=== PATIENT | female | born 1935 | race Caucasian/White ===

== ENCOUNTER 2023-09-12 16:09 | Inpatient (IN) | payer MEDICARE, SELFPAY ==
[2023-09-12] VITALS (36 sets, daily range): BP systolic 63–127; BP diastolic 35–88; BMI 23.2
[2023-09-12] MEDS: NSS 184 ML IV (09:24)
[2023-09-12] MEDS: LOW STRENGTH ASPIRIN 324 MG PO (09:26)
--- NOTE | 2023-09-12 10:14 | W.PN.CARDCBS ---
Today's Communication / Plan
-
Review cath films
possible LHC
possible CTS consult
Impression / Plan
-
This is the H&P summary.
Full H&P scanned into chart.
PCP: Ericka Boyce MD
CD[facility]: [facility] prior to admission, [facility]
HPI: This is an 88 y/o female, PMH sig for HLD, HTN, diet controlled DM, remote PUD. States a 6-12 month history of exertional chest heaviness with associated SOB/MATHEW. These symptoms have been progressively worsening and PCP had referred to
Cardiology for intial consult. Symptoms worsened and and presented to [facility]. She was in acute heart failure with pulmonary edema. Was admitted to ICU and diuresed with IV lasix. HS troponin was initially 914 and trended up to 2078. Echo with
preserved LVSF, EF 55%, septal HK, diastolic dysfunction. lab technician 09/11 with critical ostial LAD as culprit for NSTEMI, with collaterals to an occluded RCA. Attempted PCI of LAD was unsuccessful and ultimately aborted.
Transferred today for re-look with possible attempt at LAD PCI vs. CTS consult for MidCAB.
Echo 09/10- Nml LVSF, EF 55%, grade I diastolic dysfunction, mid-distal septal HK, mild
IMPRESSION/PLAN:
NSTEMI
unsuccessful attempted ostial LAD PCI at [facility]
Possible [facility]- angiography re-look with possible attempt for LAD PCI
if not cath/pci candidate- likely consult CTS
aspirin 324mg this AM
echo results noted
new start metoprolol xl 25/d
cardiac rehab
followup w/Dr. Holguin at d/c
Acute Diastolic HFrEF, 55%/Pulmonary edema
diuresed with lasix- she appears euvolemic- will monitor
continue GDMT- metoprolol 25/d, losartan 100/d for now
consider dapagliflozin 10/d.
New onset PAF
brief AF noted on tele while on bedrest- had been on IV heparin
[id number] (age, gender, CAD, HTN, DM)
will need OAC at d/c
HLD- check lipid profile, continue statin therapy
HTN- monitor trends
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
IV fluids pre/post cath, check creat post dye load
Diet controlled DM- check HgbA1C, ISS as needed
PUD- remote, continue PPI especially with addition of OAC/possible DAPT.
Progress Note - Prototype Special Build
Subjective
Date of Service: September 12, 2023
Objective
Vital Signs and I&O:
Vital Signs
Temp Pulse Resp BP Pulse Ox
98.9 F 73 18 118/63 95
09/12/23 08:30 09/12/23 08:30 09/12/23 08:30 09/12/23 08:30 09/12/23 08:30
Vital Signs
Temp Pulse Resp BP Pulse Ox
98.9 F 73 18 118/63 95
09/12/23 08:30 09/12/23 08:30 09/12/23 08:30 09/12/23 08:30 09/12/23 08:30
Intake & Output
09/10/23 09/11/23 09/12/23 09/13/23
06:59 06:59 06:59 06:59
Intake Total 368 / 368
Balance 368 / 368
Physical Exam
Physical Exam
AAOx3, MAEE 5/5
RRR S1 S2 no murmurs
CTA bilat, non labored
soft abd, + bs
bilat extremities w/palpable distal pulses, no edema
--- NOTE | 2023-09-12 11:05 | CONSULT.CT ---
Consultation
-
Date/Time Consultation Requested: 09/12/23
Date/Time Consultation Performed: 09/12/23
Requesting Provider: Dr. Walsh
Performing Provider: Riya Argueta PRIMARY COUNSELOR for Dr. Kowalski
Reason for Consultation: CABG evaluation
Patient History
Physicians
Family Physician: Ericka Boyce
Outpatient Replenishment Analyst: none prior to admission, new to [facility]/Aren Holguin DO
Inpatient Replenishment Analyst: Dr. Walsh
History of Present Illness
88 year old female ([place] reports a 6-12 month history of progressively worsening exertional left sided chest heaviness with associated SOB/MATHEW. Symptoms recently occurred when walking less than 1 full block. Patient was admitted
to [facility] with acute heart failure with pulmonary edema and diuresed with IV Lasix. Ruled in for NSTEMI (HS troponin 914>2078). Patient taken to the phlebotomist lab assistant on 09/11 (radial artery) with reported dual left ostia and critical 99%
ostial LAD as culprit for NSTEMI, with collaterals to an occluded RCA. An attempted PCI of LAD was unsuccessful and ultimately aborted.
Transferred to [facility] 09/12/23 for possible attempt at LAD PCI which proved unsuccessful. CT Surgery consulted for CABG evaluation. Patient does NOT take
Echo 09/10- Nml LVSF, EF 55%, grade I diastolic dysfunction, mid-distal septal HK, mild
Cardiac Cath 09/12/23 (femoral artery): FloWire assessment in the distal circumflex demonstrated flow-limiting disease (IFR 0.88, 0.86, 0.91). Proximal circumflex demonstrating nonflow limiting disease of the ostial circumflex (IFR 1.0). Unsuccessful
attempts to wire severe highly angulated ostial/proximal LAD disease.
Past Medical History
Past Medical History: Other
Hypertension
Hyperlipidemia
Type 2 Diabetes (diet controlled)
Peptic Ulcer disease (remote)
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
Osteoarthritis of B/K knees
Past Surgical History
Past Surgical History: Other
Hysterectomy
Cancerous colon tumor removed
Family History
Mother: at Age (83-emphysema)
Father: N/A (father unknown)
Social History
Alcohol: None
Drug: None
Tobacco: Former Smoker (quit 'many years' ago)
Personal:
Living: Alone (independent with ADLs, does not drive)
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
Allergies
Allergy/AdvReac Type Severity Reaction Status Date / Time
adhesive AdvReac Severe Rash Verified 09/12/23 08:40
metformin AdvReac Severe diarrhea Verified 09/12/23 08:40
Home Medications
Medication Instructions Recorded Confirmed Type
aspirin 81 mg tablet 81 mg PO DAILY 09/12/23 09/12/23 History
famotidine 20 mg tablet 20 mg PO DAILY 09/12/23 09/12/23 History
losartan 100 1 tab PO DAILY 09/12/23 09/12/23 History
mg-hydrochlorothiazide 25 mg tablet
pantoprazole 40 mg tablet,delayed 40 mg PO DAILY 09/12/23 09/12/23 History
release
rosuvastatin 20 mg tablet 20 mg PO HS 09/12/23 09/12/23 History
Review of Systems
-
History Source: Patient
General: Reports No Symptoms
HEENT: Reports No Symptoms
Respiratory: Reports MATHEW
Cardiac: Reports Chest Pain (none since admission to [facility])
Abdomen/GI: Reports No Symptoms
: Reports No Symptoms
Musculoskeletal: Reports No Symptoms
Skin: Reports No Symptoms
Neurological: Reports Syncope (07/2023-did not seek medical attention)
Vascular: Reports No Symptoms
Physical Exam
Vital Signs
Temp 98.9 F 09/12/23 08:30
Temp route: Oral 09/12/23 08:30
Pulse 73 09/12/23 08:30
Resp Rate 18 09/12/23 08:30
Blood pressure 118/63 09/12/23 08:30
Blood pressure extremity used: Right upper arm 09/12/23 08:30
Position: Lying 09/12/23 08:30
SaO2 95 09/12/23 08:30
Oxygen Mode of Delivery Room air 09/12/23 08:30
Can the patient verbally communicate their pain? Yes 09/12/23 10:52
Actual Weight 61.235 kg 09/12/23 08:37
Body Mass Index (BMI) 23.2 09/12/23 08:37
Exam
General: Well Nourished, No Apparent Distress and Comfortable
HEENT: Normocephalic, Anicteric, Moist Mucous Membranes, PERRLA and EOMI
Respiratory: Clear
Cardiac: Irregular Rhythm
GI: Soft, Non Tender, Non Distended and Normal Bowel Sounds
Rectal: Deferred by Provider
Skin: Warm and Dry
Neuro: AO x 3 and Nonfocal/Grossly Intact
Extremities: Pulses (+2/4 B/L DP pulses)
Lymph: No Lymphadenopathy
Psych: Calm
Assessment / Plan
-
88 year old female diagnosed with NSTEMI and found to have multi-vessel coronary disease (Occluded RCA, 99% ostial LAD, flow limiting disease of LCx by IFR). [facility] Transferred to [facility] 09/12
for PCI attempt via femoral approach which was unsuccessful.
- Dr Kowalski to meet with patient to discuss surgical risk/benefit
- pre-op diagnostics: non-contrast CT chest, TTE, carotid ultrasound, B/L LE vein mapping
- plan for robot assist CABG x 3-4 on 09/14
- hold Losartan/HCTZ pre-op starting 09/13
Data Reviewed
-
EKG: Report Reviewed by me and Discussed with Physician
Certified Juvenile Probation Officer: Report Reviewed by me and Discussed with Physician
Echo: Report Reviewed by me and Discussed with Physician
Radiology: Report Reviewed by me and Discussed with Physician
Labs: Labs Reviewed by me and Discussed with Physician
[2023-09-12] MEDS: HEPARIN 25000 UNITS/250 ML IV ×2 (11:31→17:56)
[2023-09-12 11:55] LABS: Hematocrit 35.7 % (37.0-47.0); Hemoglobin 12.9 g/dL (12.0-16.0); Mean Corp Hgb Conc. 36.1 g/dL (33.0-37.0); Mean Corpuscular Hgb 32.4 pg (27.0-31.0); Mean Corpuscular Volume 89.7 fL (81.0-99.0); Mean Platelet Volume 9.9 fL (7.4-10.4); Platelet Count 234 10^3/uL (130-400); Red Blood Cell Count 3.98 10^6/uL (4.20-5.40); Red Cell Dist. Width 12.5 % (11.5-14.5); White Blood Cell Count 12.8 10^3/uL (4.8-10.8)
[2023-09-12] MEDS: NOVOLOG FLEXPEN-LOW RESISTANCE SC (12:05)
[2023-09-12 12:08] LABS: APTT 23.2 Sec (23.4-35.0)
[2023-09-12 12:13] LABS: Glucose - Point of Care 152 mg/dl (70-99)
[2023-09-12 13:44] LABS: ACT-LR - POC 234 Seconds (116-155)
[2023-09-12 13:59] LABS: ACT-LR - POC 242 Seconds (116-155)
--- NOTE | 2023-09-12 14:22 | PTCARENOTE ---
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
--- NOTE | 2023-09-12 14:32 | PTCARENOTE ---
[address] ceja aware. 20 iv lasix orderd and given
[2023-09-12] MEDS: LASIX 20 MG IV (14:38)
--- NOTE | 2023-09-12 14:50 | PTCARENOTE ---
pt states no pain at this time . sats 95-97% on 6l.
[2023-09-12 15:01] LABS: Glucose - Point of Care 167 mg/dl (70-99)
--- NOTE | 2023-09-12 15:05 | PTCARENOTE ---
Assumed care of pt at 1500. Pt AAO x 3, denies CP. ECHO at bedside. Pt remains on NC6L, o2 sats 98%, no SOB. R groin dressing dry and intact. Purewick in place, draining nayla urine. +2 RDP. See flowsheet for further assessment. Will cont to
monitor closely.
--- NOTE | 2023-09-12 15:14 | ITS.CL.ANGIO ---
Quality Assurance Project Manager - Angioplasty
Angioplasty
Procedure Report:
CORONARY ANGIOPLASTY REPORT
Date of Procedure: 09/12/2023
Referring: Jonatan Rodriguez MD
Indication: Unstable angina, non-STEMI. The patient underwent catheterization yesterday demonstrating multivessel CAD. An attempt was made to treat severe ostial/proximal LAD disease but a guide catheter could not engage the left coronary ostium.
The patient was sent here for consideration of a second attempt at PCI-the attempt yesterday was via a radial artery approach and we thought perhaps a femoral artery approach could be used to selectively engage the LAD. If this was not possible
then CABG. Dr. Rodriguez felt the best plan would be a MIDCAB with grafting to the LAD with medical therapy for the residual CAD including a distal circumflex stenosis and a mid RCA HOG COUNTER. When I reviewed the angiogram, I had concerned that there was
significant ostial circumflex disease. After speaking with Dr. Rodriguez, we decided to do FloWire assessment of the ostial circumflex then attempt LAD PCI if the ostial circumflex was not flow-limiting. If flow-limiting disease in the proximal
circumflex was found, then upfront surgery would be the safest option. We are concerned about proceeding with CABG given her age (88) and mild cognitive impairment.
PROCEDURE SUMMARY:
1. FloWire assessment in the distal circumflex (past distal circumflex lesion) demonstrating flow-limiting disease with IFR 0.88, 0.86, 0.91.
2. FloWire assessment in the proximal circumflex demonstrating nonflow limiting disease of the ostial circumflex with IFR 1.0
3. Unsuccessful attempts to wire severe highly angulated ostial/proximal LAD disease
PROCEDURE DETAILS:
I opted to place an 8 Guamanian sheath in the right femoral artery to allow dual treatment of the ostial circumflex and ostial LAD should that become necessary. Our first plan was to evaluate the ostial circumflex with IFR. Multiple guide catheters
were used the first of which was an EBU 3.5 [place]ian guide. We were unable to engage the circumflex. An AL 2 guide was able to engage the circumflex. Prior to engagement, normalization of a [employer] flow wire was performed in the aorta. The guide
was then advanced to the ostium of the circumflex and the [place] flow wire advanced into the distal branch of the circumflex. The guide was withdrawn back into the aorta. iFR measurements were 0.88, 0.86, 0.91. Taken together, this is consistent
with flow-limiting disease. The wire was then carefully pulled back to the proximal circumflex with the guide catheter remaining in the aorta. iFR measurements were 1.0 and 1.0 consistent with nonflow limiting disease at the level of the ostial
circumflex.
At this point we attempted to get a wire through the severe highly angulated ostial/proximal LAD disease. Multiple guide catheters including the AL 2, EBU 3.5, JL 4, and JL 3.5 were not able to select the LAD and we were able to get a whisper wire
into the proximal LAD but not across the lesion. Eventually, we decided to abort further attempts out of concern for dissecting the vessel and causing abrupt closure which would be catastrophic. Patient did not have chest discomfort or ECG changes
at any time during the attempted PCI.
ANTI-COAGULATION THERAPY
1: Heparin 5000 units
Closure Device Used: 8 Guamanian Angio-Seal RFA
Radiation (mGy): 440
DAP (cm2.Gy): 40.6
Fluoroscopy time: 27 minutes
CONCLUSIONS:
1. FloWire assessment demonstrating the ostial/proximal circumflex disease is not flow-limiting although the distal circumflex lesion is flow-limiting
2. Unsuccessful attempt to wire the highly angulated severe ostial/proximal LAD stenosis from a femoral approach
3. Dr. Kowalski will evaluate the patient for possible MIDCAB (versus multivessel CABG). Given her age and comorbidities including mild cognitive impairment, she will be a high risk CABG candidate. Unfortunately, her presentation was very significant
angina including rest pain possibly resulting in mild pulmonary edema
Copy to: Elliott Rodriguez MD, Ericka Boyce MD ([facility]), Jaya Kowalski MD
Christopher Walsh MD, [facility]
[2023-09-12 15:50] LABS: ACT-LR - POC > 397 Seconds (116-155)
--- NOTE | 2023-09-12 15:53 | PTCARENOTE ---
ECHO complete, report given to Sadaf CASINO CHANGE ATTENDANT. Family at bedside. 02 sats 96-97% on NC6L. R groin dressing dry and intact.
--- NOTE | 2023-09-12 16:45 | PTCARENOTE ---
Patient received from [facility] s/p catheterization. Afib via cm, SaO2 @ 98% on 6lnc. R groin procedural site cdi, no ecchymosis or hematoma noted, distal pulse palp, extremity warm and pink. Dr. Walsh notified of rhythm change, to bedside. Patient
voided via Purewick, 200ml nayla urine. Patient updated to plan of care, in agreement. See work list for full assessment and interventions performed.
[2023-09-12] MEDS: NSS 250 IV (17:17)
[2023-09-12 17:22] LABS: Glucose - Point of Care 187 mg/dl (70-99)
[2023-09-12] MEDS: NOVOLOG FLEXPEN-LOW RESISTANCE 1 UNITS SC (17:56)
--- NOTE | 2023-09-12 19:45 | PTCARENOTE ---
ERNESTINA Carlisle notified of troponin result of 30. Repeat troponin in 6 hrs ordered.
--- NOTE | 2023-09-12 20:15 | PTCARENOTE ---
Pt received from ashwini RN. Walking rounds completed. Pt AAOx4. A-fib on monitor. HR 80-90s. BP 107/60. Bilateral radial and DP pulses palpable. No edema. Heart tones audible. Pt on 2 L NC. POX 966%. Purewick in place. Pt voiding nayla urine.
Abdomen soft/nontender. Right groin cath site CDI. No ecchymosis or hematoma at this time. Left PIV x2 CDI. Heparin infusing as ordered. No c/o pain at this time. Call barragan within reach. See worklist for full nursing assessment, VS, and nursing
interventions.
[2023-09-12] MEDS: CRESTOR 20 MG PO (22:03)
[2023-09-12] MEDS: PEPCID 20 MG PO (22:03)
[2023-09-12 22:08] LABS: Glucose - Point of Care 171 mg/dl (70-99)
[2023-09-13] VITALS (93 sets, daily range): BP systolic 58–143; BP diastolic 32–117; BMI 22.7
--- NOTE | 2023-09-13 00:09 | PTCARENOTE ---
Addendum entered by Stacey Lozoya RN 09/13/23 00:14:
Heparin infusing as ordered.
Original Note:
Previous assessment unchanged. Pt remains a-fib on monitor. HR 90s. BP 91/56. Pt maintained on 2 L NC. POX 96%. Pt repositioned in bed. Purewick catheter in place. Right groin procedural site CDI. Right DP pulse palpable. Right LE warm and pink.
Ordered labs drawn and sent. No c/o pain at this time. Call barragan within reach.
[2023-09-13 00:19] LABS: APTT 80.2 Sec (23.4-35.0)
[2023-09-13] MEDS: LEVOPHED 250 IV (04:33)
--- NOTE | 2023-09-13 04:50 | PTCARENOTE ---
Pt re-assessed. Remains a-fib/a-flutter on monitor. HR 90-100s. BP's soft. 80s/50s. CVPA Lydia Carlisle at the bedside. Levo infusion initiated as ordered - See OCT. Pt on RA. POX 94%. Purewick catheter in place. Right groin procedural site CDI.
Right DP pulse palpable. Right LE warm and pink. No c/o pain at this time. Call barragan within reach.
--- NOTE | 2023-09-13 04:56 | PTCARENOTE ---
Pt now SR on monitor. HR 70's.
[2023-09-13 05:40] LABS: Hematocrit 37.1 % (37.0-47.0); Hemoglobin 12.9 g/dL (12.0-16.0); Mean Corp Hgb Conc. 34.8 g/dL (33.0-37.0); Mean Corpuscular Hgb 31.9 pg (27.0-31.0); Mean Corpuscular Volume 91.8 fL (81.0-99.0); Mean Platelet Volume 10.3 fL (7.4-10.4); Platelet Count 282 10^3/uL (130-400); Red Blood Cell Count 4.04 10^6/uL (4.20-5.40); Red Cell Dist. Width 12.8 % (11.5-14.5); White Blood Cell Count 15.3 10^3/uL (4.8-10.8)
[2023-09-13 05:54] LABS: INR 1.16
[2023-09-13 05:56] LABS: APTT 79.4 Sec (23.4-35.0)
--- NOTE | 2023-09-13 06:10 | W.PN.CT ---
Today's Communication / Plan
-
-no complaints, no CP, A&O x3
-in and out of a-fib 70s-low 100s hr throughout the night- currently in nsr
-drips: Heparin @ 700 units/hr (PTT 80.2) and Levo @ 2 for hypotension
-low SBP 80s-90s while in a-fib - asymptomatic, in bed
-diuresed with 20 iv Lasix on 09/12 (uo 525/1025+ in 12/24 hrs)
-R groin and R radial incisions are ok, cdi, no hematoma
-current meds (ASA, Crestor, Toprol 25 qd, Lasix 40 po qd). Held Cozaar for hypotension and preop
- Dr Kowalski will review Cath, Echo and will meet with patient to discuss surgical risk/benefit
- pre-op diagnostics: non-contrast CT chest, TTE, carotid ultrasound, B/L LE vein mapping ordered
- tentative plan for robot assist CABG x 3-4 on 09/14
Assessment / Plan
-
88 year old female diagnosed with NSTEMI and found to have multi-vessel coronary disease (Occluded RCA, 99% ostial LAD, flow limiting disease� of distal LCx with IFR 0.88, non-flow limiting ostial Circ with IFR 1.0). [facility] Transferred to [facility] 09/12 for PCI attempt via femoral approach, which was unsuccessful.
- Echo 09/12/23:
�-LV ejection fraction is approximately 30-35%, by visual assessment. Akinesis of the entire anteroseptal, inferoseptal, apical septal. Apical dyskinesis.
�-Normal right ventricular size and function.
�-Mild mitral stenosis; peak/mean gradients 9/2 mmHg. Mild to moderate mitral regurgitation.
�-Likely moderate aortic stenosis; peak/mean gradient 17/8 mmHg, calculated CARISSA 1.0 cm2. These gradients are lower than expected for this degree of aortic stenosis due to decreased left ventricular systolic function. Mild to moderate aortic
regurgitation.
-Compared to previous echo on 09/10/2021, LV function is now reduced (previously 55%).
-Hypertension
-Hyperlipidemia
-Type 2 Diabetes (diet controlled)
-Peptic Ulcer disease (remote)
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
-Osteoarthritis of B/l knees
�
Discussed patient care with: Nursing and Care Team
Subjective
-
Date of Service: September 13, 2023
Objective Data
-
APTT 80.2 Sec (23.4-35.0) H 09/12/23 23:50
Vital Signs
Vital Signs
Temp Pulse Resp BP Pulse Ox
98 F 104 24 93/51 94
09/13/23 00:01 09/13/23 01:30 09/13/23 01:30 09/13/23 01:00 09/13/23 01:30
CT Intake/Output/Weight
09/12/23 09/12/23 09/13/23
06:59 18:59 06:59
Intake Total 500 / 632 132 / 632
Output Total 500 / 1025 525 / 1025
Balance 0 / -393 -393 / -393
SaO2: 94
Physical Exam
-
General: Awake and AOx3
Cardiovascular: Regular rate & rhythm, Murmur (08/19 syst @ lsb) and No Rub
Respiratory: Rales (at bases. No wheeze)
Incision: Other (Both R radial and R groin incisions are cdi, soft, nontender, no hematoma.)
Extremities: No Edema (2+ DP b/l)
Data Reviewed
-
Lab Results: Results Reviewed
Medications: Active Meds Reviewed
Chest X-Ray: Report Reviewed and Image Reviewed
ECG: Report Reviewed and Image Reviewed
[2023-09-13 06:16] LABS: Blood Urea Nitrogen 37 mg/dl (7-17); Carbon Dioxide 23 mmol/L (22-30); Chloride 102 mmol/L (98-107); Estimated Creatinine Clearance 27 ml/min; Glucose 188 mg/dl (70-99); HDL Cholesterol 56 mg/dl; LDL Cholesterol, Calculated 85 mg/dl; Potassium 3.2 mmol/L (3.5-5.1); Sodium 138 mmol/L (135-145); Total Cholesterol 169 mg/dl (50-199); Triglyceride 141 mg/dl (10-149); Very Low Density Lipoprotein 28 mg/dl (0-30); eGFR 40.05
[2023-09-13] MEDS: KCL 40 MEQ PO (06:43)
--- NOTE | 2023-09-13 07:30 | PTCARENOTE ---
Assumed care of patient from shift superintendent RN. JUAN CARLOSO x 3. SR on monitor. Room air 96%. Lungs decreased and coarse b/l in bases. Levophed and heparin infusing at present. BP 90's-100's/50's. Denies cp or sob. Abdomen soft , with bowel sounds
present. Voiding w/o issue. Pulse palpable, no edema appreciated.
[2023-09-13] MEDS: PROTONIX 40 MG PO (08:25)
[2023-09-13] MEDS: LOW STRENGTH ASPIRIN 81 MG PO (08:25)
--- NOTE | 2023-09-13 08:31 | W.PN.CD ---
Today's Communication / Plan
-
- Cardiac surgery evaluation.
Impression / Plan
-
PCP: Ericka Boyce MD
[facility]
88 y/o female, H sig for HLD, HTN, diet controlled DM, remote PUD. States a 6-12 month history of exertional chest heaviness with associated SOB/MATHEW. These symptoms have been progressively worsening and PCP had referred to Cardiology for intial
consult. Symptoms worsened and and presented to [facility]. She was in acute heart failure with pulmonary edema. Was admitted to ICU and diuresed with IV lasix. HS troponin was initially 914 and trended up to 2077. Echo with preserved LVSF, EF 55%,
septal HK, diastolic dysfunction. entry level lab technician 09/11 with critical ostial LAD as culprit for NSTEMI, with collaterals to an occluded RCA. Attempted PCI of LAD was unsuccessful and ultimately aborted.
Transferred today for re-look with possible attempt at LAD PCI vs. CTS consult for MidCAB.
Echo 09/10- Nml LVSF, EF 55%, grade I diastolic dysfunction, mid-distal septal HK, mild
NSTEMI
unsuccessful attempted ostial LAD PCI at [facility]
Unsuccessful attempt to wire the highly angulated severe ostial/proximal LAD stenosis from a femoral approach
CT surgery is following for possible MIDCAB (versus multivessel CABG).�
Given her age and comorbidities including mild cognitive impairment, she will be a high risk CABG candidate.� Unfortunately, her presentation was very significant angina including rest pain possibly resulting in mild pulmonary edema
On aspirin, crestor, Metoporlol, and heparin.
echo results 09/12/23: LVEF 35%. Moderate MR.
on metoprolol xl 25/d
Acute Diastolic HFrEF, 35%/Pulmonary edema
diuresed with lasix- she appears euvolemic- will monitor
continue GDMT- metoprolol 25/d, losartan 100/d for now
consider dapagliflozin at discharge
New onset PAF
brief AF noted on tele while on bedrest- had been on IV heparin
[id number] (age, gender, CAD, HTN, DM)
will need OAC at d/c
HLD- check lipid profile, continue statin therapy
HTN- monitor trends
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
IV fluids pre/post cath, check creat post dye load
Diet controlled DM- check HgbA1C, ISS as needed
PUD- remote, continue PPI especially with addition of OAC/possible DAPT.
Physical Exam
Vital Signs/Labs
Vital Signs
Temp Pulse Resp BP Pulse Ox
98 F 78 25 103/54 93
09/13/23 04:11 09/13/23 07:10 09/13/23 07:10 09/13/23 07:00 09/13/23 05:15
09/12/23 09/13/23 09/14/23
06:59 06:59 06:59
Actual Weight 59.9 kg
09/13/23 05:24
09/13/23 05:24
PT 15.0 Sec (11.4-14.6) H 09/13/23 05:24
INR 1.16 09/13/23 05:24
APTT 79.4 Sec (23.4-35.0) H 09/13/23 05:24
Triglycerides 141 mg/dl (10-149) 09/13/23 05:24
LDL Cholesterol, Calc 85 mg/dl 09/13/23 05:24
VLDL Cholesterol, Calc 28 mg/dl (0-30) 09/13/23 05:24
HDL Cholesterol 56 mg/dl 09/13/23 05:24
LAB Results
09/12/23 09/12/23 09/13/23
18:50 23:50 05:24
Troponin I 30.000 H* 34.000 H* 29.600 H*
09/13/23
06:00
Troponin I Cancelled
Physical Exam
Constitutional: No acute distress and Comfortable
EENT: Anicteric and Moist mucous membranes
Cardiovascular: Rhythm & rate is regular, Pedal edema is absent, JVD pressure is normal and Systolic murmur present
Respiratory: Respiratory effort normal and Crackles Present
GI: Soft, Flat and Non tender
Neuro/Psych: Alert, Oriented and AO x 3
Other: Skin
Data Reviewed
-
Date of Service: September 13, 2023
Medical Decision Making: Reviewed Test Results, Independent Historian Assessment and Test Interpretation
EKG: Tracing Personally Visualized and interpreted
Echo: Report Reviewed by me
X-Ray/CT/US/MRI/NUC/PET: Report Reviewed by me
Labs: Labs Reviewed by me
Old Records: Reviewed
--- NOTE | 2023-09-13 08:57 | W.PN.UPDATE ---
Update Note
Progress Note Update
I had a long discussion with Meron Yu as well as Karlie (Daughter). She has significant proximal LAD disease with recent ACS-NSTEMI found not to be amenable from a PCI perspective. Her EF is severely abnormal with reduced function to approximately
30% with regional wall motion abnormalities. She also has concomitant what appears to be at least moderate and mild-moderate functional MR. She is not a candidate for robotic assisted MIDCAB - in this level of risk of a patient, I would offer a
sternotomy as the safest option in the event she does not tolerate single lung ventilation and the stress associated with a minimally invasive surgery. Still, she is at significant mortality risk at 30-days with a % exceeding 25% in my opinion. In
addition, we need to consider the quality of life after a cardiac surgery. Her daughter will be in later today along with her son to have a family meeting. Given her age, echo findings, recent AR, moderate , etc, it is not unreasonable for her to
opt for no surgical intervention and proceed with hospice/medical therapy with the understanding that she will likely progress into heart failure or have another ACS event.
--- NOTE | 2023-09-13 09:00 | PTCARENOTE ---
Assist x 1 oob to bathroom then stretcher for transport to CT scan. Pt dizzy upon standing and somewhat unsteady on feet, grabbing for table/cortez. BP remains low with Levophed infusing systolics in 90's at present. BP dropped to 76 with attempt
to decrease. Transferred to CT scan for testing with RN.
[2023-09-13 09:33] LABS: Glycohemoglobin (HgbA1c) 6.8 % (4.0-5.6)
[2023-09-13 09:40] LABS: Glucose - Point of Care 218 mg/dl (70-99)
[2023-09-13] MEDS: NOVOLOG FLEXPEN-LOW RESISTANCE SC ×3 (10:43→15:59)
--- NOTE | 2023-09-13 11:06 | W.PN.UPDATE ---
Update Note
Progress Note Update
Procedure Type:�Isolated CABG
Perioperative Outcome Estimate %
Operative Mortality 40.9%
Morbidity & Mortality 43.8%
Stroke 7.23%
Renal Failure 16.2%
Reoperation 8.23%
Prolonged Ventilation 29.7%
Deep Sternal Wound Infection 0.212%
Long Hospital Stay (>14 days) 41.3%
Short Hospital Stay (<6 days)* 4.56%
Clinical Summary
Planned Surgery: Isolated CABG, Urgent, First cardiovascular surgery
Demographics: 88 year old, White, female, 60kg, 163cm, BMI: 22.6 kg/m�
Lab Values: Creatinine: 1.3 mg/dL, Hematocrit: 37.1%, WBC Count: 15.3 10�/�L, Platelet Count: 205273 cells/�L
Substance Abuse: Former smoker
Risk Factors / Comorbidities: Diabetes Mellitus , Hypertension, Syncope
Cardiac Status: Acute and chronic heart failure, NYHA Class II, Ejection Fraction = 30%
Coronary Artery Disease: 3 vessels diseased, Proximal LAD Stenosis >=70%, Non-ST Elevation AK, AK: 1 to 7 Days
Valve Disease: Aortic Stenosis, Moderate AR, Mitral Stenosis, Moderate MR, Trivial/Trace TR
Arrhythmia: Recent A-fib, Paroxysmal
--- NOTE | 2023-09-13 11:27 | PTCARENOTE ---
BP remains soft. Levo infusion titrated for desired effect. Cardiology LABOR SUPERVISOR called re Levo needs increasing. Pt remains asymptomatic. Need for A line discussed. awaiting rounds for follow up
--- NOTE | 2023-09-13 12:10 | CM ---
CM following for DC planning needs.
Met w/ patient, son Capo and grandtiffany at bedside. Introduced CM, explained role.
Pt. resides in a private, 2 story home alone. Has multiple family members that reside closeby. Pt. is functionally indep. at baseline w/ ADLs, mobility. There is no DME in the home.
Patient has RX plan and uses [facility] for prescription needs.
Will cont. to follow and remain available for DC planning needs.
--- NOTE | 2023-09-13 13:23 | W.PN.UPDATE ---
Update Note
Progress Note Update
CARDIAC SURGERY ATTENDING:
I was asked by my colleague, Dr. Jaya Kowalski, to independently assess Mrs. Meron Yu as a secondary surgical opinion. Briefly, Mrs. Yu is an 88 y/o woman w/ 6-12 months of progressive angina w/ associated SOB/MATHEW. She had progressive
symptoms and then presented to [facility] w/ CHF & NSTEMI (HS CTNI 914 to 2078). Medical management was instituted and cardiac catheterization was performed. This demonstrated dual left ostial anatomy w/ 99% ostial LAD w/ collaterals to COORDINATING PRODUCER of her RCA.
Attempted PCI was unsuccessful. She was then transferred to . A second attempt at PCI was undertaken w/ inability to engage the ostium of the LAD given the high angularity and severe nature of the ostial disease. FloWire assessment demonstrated
ostial/prox LCx which was NOT flow limiting, but distal LCx disease that was positive for flow-limiting disease. Echocardiogram demonstrated LVEF 30-35% w/ akinesis of the entire anterosetal, inferoseptal, and apical septal segments w/ apical
dyskinesis. She also has moderate (17/8, CARISSA 1.0) and jkid-bb-yivtucat MR w/ mild MS (9/2). EKG demonstrated AF w TWA c/w anterolateral ischemia and prolonged QT. CT-CAP demonstrated mild CHF w/ very small B/L and severe coronary artery
calcifications w/ at least moderate AV calcifications. Although her ascending aorta is relatively spared, her arch has severe calcifications at the ostium of her arch vessels and along the lesser curve. Laboratory analysis: 15.3>12.9 (37.1)<282;
PTT 79.4 (heparin gtt), INR 1.16; 37/1.3. K 3.2. BS 188. HgbA1c 6.8. CTNI: 34.0 to 29.6
CURRENTLY:
CP free on heparin gtt and levophed at 4. Tm 37.2. Tc 37.0. 109 AF. 82/47. 95% RA. GTTS: heparin, levo 4. UO: No richardson currently, moderate void recorded at 8AM. No significant PO intact (2 spoonfuls of soup). Neuro: intact, forgetful per RN
(early dementia on history).
Her calculated STS mortality risk for ISOLATED CABG is 40.9%
A/P:
I have seen & examined this patient. She is currently hypotensive requiring levophed, but appears quite comfortable sitting up in bed on RA. She denies any current CP/SOB and is mentating appropriately. Her troponins are downtrending. However,
given her advanced age, coupled w/ her comorbidities, I believe surgical intervention to be of PROHIBITIVE RISK and would NOT recommend CABG. I had a long conversation with the patient and her family at bedside. I had a misty discussion regarding
options, and they understand and agree with the decision avoid operation. In addition, we discussed code status, and the patient requested DNR/DNI status should her condition deteriorate.
I do believe it is reasonable to continue with maximal medical therapy at this time. Hopefully her blood pressure will improve and her levophed will be able to weaned as she navigates her OH. Hospice consultation has also been requested; patient
and family aware & agreeable.
Thank you,
Please call with any questions.
Rosales South M.D.
[phone]
--- NOTE | 2023-09-13 14:53 | CM ---
Addendum entered by SOURAV Barone 09/13/23 16:10:
Consulted w/ Lynda, bushwalking guide. Goal is for patient to go to home on hospice.
[facility] cannot provide home hospice to patient at her residence due to geographical area.
Met w/ family at bedside, agreed to referral to [facility] [phone]. Initiated referral to them, awaiting response.
Original Note:
CM received hospice referral.
Spoke w/ Liya WYMAN and RN, Meron Her.
Goal would be to return to home w/ family on hospice. Pt. still requiring IV Levo, however. Did initiate referral to Hospice for review and providing information to family. Pt. may qualify for IP hospice at this time.
Will follow closely.
--- NOTE | 2023-09-13 15:33 | HOSPNOTE ---
Spoke with patient and family at length. The patient would like to go home, the patient is not symptomatic and I feel would be able to go home safely with hospice. The patient resides out of our service area. If we could order a PT eval for safety
and switch over to PO meds in order for patient to be safely transported tomorrow via ambulance. OOH DNR will need to be on chart. Case management aware and floor RN of plan. Equipment will be needed for patient.
[2023-09-13] MEDS: ProAmatine 10 MG PO (16:03)
--- NOTE | 2023-09-13 16:43 | PTCARENOTE ---
Midodrine therapy initiated per order. Levophed drip weaned down as tolerated. Pt with episode of loose BM x 1. Incontinence noted with episode. Denied dizziness or other issue with ambulating to bathroom. BP maintained. Family at bedside.
--- NOTE | 2023-09-13 20:15 | PTCARENOTE ---
assumed care of pt from previous RN. pt A&Ox4, w/ occasional forgetfulness/STM loss. pt resting in bed, c/o headache, see MAR. a fib on tele-monitor, HR 100s-115s. levo infusing, titrated per order. POX 98% on RA. abd s/n, +BS. no c/o nausea.
palpable peripheral pulses, no edema noted. PIV x2 intact. see worklist for complete nursing assessment, interventions, VS, and I&Os.
[2023-09-13] MEDS: TYLENOL 650 MG PO (20:20)
[2023-09-13] MEDS: PEPCID 20 MG PO (20:20)
--- NOTE | 2023-09-13 21:50 | W.PN.UPDATE ---
Update Note
Progress Note Update
-pt is in afib 110s-120s, BP 105/56. She has been on IV Heparin for new a-fib and CAD. It was stopped 09/13 (no documented reason). Levo is now off, Toprol stopped, was started on Midodrine 10 tid.
-discussed with Dr. Mendiola - will restart iv Heparin and try low dose Toprol 12.5 mg for rate control/cad.
[2023-09-13] MEDS: HEPARIN 25000 UNITS/250 ML IV (22:07)
[2023-09-13] MEDS: TOPROL XL 12.5 MG PO (22:13)
[2023-09-14] VITALS (17 sets, daily range): BP systolic 78–98; BP diastolic 48–62
[2023-09-14 04:12] LABS: Hematocrit 31.5 % (37.0-47.0); Hemoglobin 11.1 g/dL (12.0-16.0); Mean Corp Hgb Conc. 35.2 g/dL (33.0-37.0); Mean Corpuscular Hgb 32.5 pg (27.0-31.0); Mean Corpuscular Volume 92.1 fL (81.0-99.0); Mean Platelet Volume 10.6 fL (7.4-10.4); Platelet Count 228 10^3/uL (130-400); Red Blood Cell Count 3.42 10^6/uL (4.20-5.40); Red Cell Dist. Width 12.6 % (11.5-14.5); White Blood Cell Count 11.5 10^3/uL (4.8-10.8)
[2023-09-14 04:13] LABS: APTT 67.5 Sec (23.4-35.0)
[2023-09-14 04:25] LABS: Blood Urea Nitrogen 43 mg/dl (7-17); Calcium 8.2 mg/dl (8.4-10.2); Carbon Dioxide 26 mmol/L (22-30); Chloride 104 mmol/L (98-107); Estimated Creatinine Clearance 27 ml/min; Glucose 150 mg/dl (70-99); Potassium 3.8 mmol/L (3.5-5.1); Sodium 132 mmol/L (135-145); eGFR 40.05
--- NOTE | 2023-09-14 08:00 | PTCARENOTE ---
Assumed care of patient from chef german RN. Sleeping in bed. SR with A flutter at times on monitor. Denies complaint. Room air 96%. Abdomen soft and non tender. Pulses palpable. Plan discussed with MD during rounds. Heparin drip
discontinued per MD order.
--- NOTE | 2023-09-14 08:09 | W.PN.CD ---
Addendum entered and electronically signed by Christopher Walsh MD 09/14/23 08:37:
Ok to use pepcid instead of protonix as she was on at home
OK to not send home on crestor. Statin not indicated in hospice situation
Original Note:
Today's Communication / Plan
-
Home hospice today if able
stop UFH
stop levophed
Impression / Plan
-
PCP: Ericka Boyce MD
[facility] DO
88 y/o female, H sig for HLD, HTN, diet controlled DM, remote PUD. States a 6-12 month history of exertional chest heaviness with associated SOB/MATHEW. These symptoms have been progressively worsening and PCP had referred to Cardiology for intial
consult. Symptoms worsened and and presented to [facility]. She was in acute heart failure with pulmonary edema. Was admitted to ICU and diuresed with IV lasix. HS troponin was initially 914 and trended up to 8. Echo with preserved LVSF, EF 55%,
septal HK, diastolic dysfunction. 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 Attempted PCI of LAD was unsuccessful and ultimately aborted.
Transferred today for re-look with possible attempt at LAD PCI vs. CTS consult for MidCAB.
Echo 09/10- Nml LVSF, EF 55%, grade I diastolic dysfunction, mid-distal septal HK, mild
NSTEMI
unsuccessful attempted ostial LAD PCI at [facility]
Unsuccessful attempt to wire the highly angulated severe ostial/proximal LAD stenosis from a femoral approach
CT surgery is following for possible MIDCAB (versus multivessel CABG).�
Given her age and comorbidities including mild cognitive impairment, she would be a vey high risk CABG candidate.� Unfortunately, her presentation was very significant angina including rest pain possibly resulting in mild pulmonary edema. Dr Kowalski
had family meeting yesterday- pt has opted for hospice care at home rather than extreme risk CABG with likely prolonged recovery. This AM she remains very comfortable with this decision.
On aspirin, crestor, Metoporlol, and heparin.
echo results 09/12/23: LVEF 35%. Moderate MR. LVEF reduced vs the echo from [facility] several days earlier. Her enzymes were significantly elevated at [facility] and TnI her 30 then 34 then 29.
on metoprolol xl 25/d- BP will not tolerate much medicine. We will try metoprolol XL 12.5 qd
Would like her on imdur 30qd but BP will not tolerate
Acute Diastolic HFrEF, 35%/Pulmonary edema
diuresed with lasix- she appears euvolemic- will monitor
No other meds will be tolerated
With hospice plan no meds for survival advantage are appropriate
New onset PAF
brief AF noted on tele while on bedrest- had been on IV heparin
[id number] (age, gender, CAD, HTN, DM)
OAT will not be prescribed given very poor short term outlook and hospice plan. We will treat with ASA 81qd
HLD- check lipid profile, continue statin therapy
HTN- monitor trends
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
Cr UNCHANGED vs precath
Diet controlled DM- check HgbA1C, ISS as needed
PUD- remote, continue protonix
Apparently hospice consult was recommending PT consult. This not a great idea as any rehab stay will surely result in transfer to acute care hospital for chest pain or hypotension. I think her short term prognosis is dismal and she stated yesterday
she wants to ' at home'. Meron (nurse in [facility]) will communicate this to family. I communicated it to patient.
Would discharge on following meds:
ASA 81mg daily
Lasix 20mg prn only for SOB
Toprol XL 12.5 qd- hold if SBP <90
Protonix 40mg qd
Midodrine 10mg tid
Crestor 20mg daily
I had a long phone conversation with elena Ziegler. She understands situation and I suggested that her mom will pass within next week or two in all likliehood. Family gets it- Karlie tearful on phone because of how fast this has all happened.
Plan to discharge to hospice later today.
Physical Exam
Vital Signs/Labs
Vital Signs
Temp Pulse Resp BP Pulse Ox
98.0 F 72 16 88/51 92
09/14/23 04:00 09/14/23 06:00 09/14/23 04:00 09/14/23 06:00 09/14/23 04:00
09/13/23 09/14/23 09/15/23
06:59 06:59 06:59
Actual Weight 132 lb 0.91 oz
09/14/23 03:40
09/14/23 03:40
PT 15.0 Sec (11.4-14.6) H 09/13/23 05:24
INR 1.16 09/13/23 05:24
APTT 67.5 Sec (23.4-35.0) H 09/14/23 03:40
Triglycerides 141 mg/dl (10-149) 09/13/23 05:24
LDL Cholesterol, Calc 85 mg/dl 09/13/23 05:24
VLDL Cholesterol, Calc 28 mg/dl (0-30) 09/13/23 05:24
HDL Cholesterol 56 mg/dl 09/13/23 05:24
LAB Results
09/12/23 09/12/23 09/13/23
18:50 23:50 05:24
Troponin I 30.000 H* 34.000 H* 29.600 H*
09/13/23 09/13/23 09/13/23
06:00 11:55 17:55
Troponin I Cancelled Cancelled Cancelled
Physical Exam
Constitutional: No acute distress and Comfortable
Cardiovascular: Rhythm & rate is regular and S1S2 is normal
Respiratory: Respiratory effort normal, Lungs clear to auscul. and Wheeze Absent
GI: Soft and Non tender
Neuro/Psych: Motor deficits absent
Data Reviewed
-
Date of Service: September 14, 2023
[2023-09-14] MEDS: ProAmatine 10 MG PO ×2 (08:30→13:27)
[2023-09-14] MEDS: LOW STRENGTH ASPIRIN 81 MG PO (08:30)
--- NOTE | 2023-09-14 10:16 | PN.CDI ---
CDI
- -
CDI:
Physician Documentation Request
Admit Date: 09/12/23 16:09
Dear Cardiology,
Please review the following and provide your response in the progress notes.
Clinical Indicators:
- 09/14 Cardiology 'Acute Diastolic HFrEF'
- 09/12 Echo EF 30-35% 'Stage I diastolic dysfunction suggestive of abnormal relaxation'
Please provide further specificity regarding the most likely type of CHF you are evaluating, treating or monitoring.
Acute diastolic CHF
Acute systolic CHF
Acute combined systolic and diastolic CHF
Other
Use of terms such as suspected, likely, concern for, or probable (associated with a specific diagnosis that is being evaluated, monitored, or treated as if it exists) are acceptable and can be coded in the inpatient setting, when documented at the
time of discharge.
Thank you,
Nola Gutierrez RN
CDI Specialist
Please use your independent medical judgment in providing your response.
--- NOTE | 2023-09-14 10:26 | W.DS.TRANS ---
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
-
Discharge Instructions:
Discharge Diagnosis/Procedures Myocardial infarction, coronary artery disease,
heart failure, atrial fibrillation
Diet As tolerated
Activity As tolerated
Driving Restrictions No driving
Bathing Restrictions None
Other Services Hospice
Instructions:
Stand-Alone Forms:
Changes to Home Medications: Yes
Discharge Medications:
DC Medications w/original date entered in [employer]
aspirin 81 mg tablet 81 mg PO DAILY Blood Clot Prevention/Tx 09/12/23
famotidine 20 mg tablet 20 mg PO HS Gastrointestinal Issue 09/12/23
furosemide 20 mg tablet 20 mg PO DAILYPRN PRN SOB #30 tabs 09/14/23
metoprolol succinate 25 mg tablet,extended release 24 hr 12.5 mg PO HS #15 tabs 09/14/23
midodrine 10 mg tablet 10 mg PO TID #90 tabs 09/14/23
Home Medication Changes
meds as above
Pending Results: No
--- NOTE | 2023-09-14 10:30 | PN.CDI ---
Addendum entered and electronically signed by Lydia Carlisle PA-C 09/27/23 19:27:
response to CDI query:
-pt has hypokalemia
Original Note:
CDI
- -
CDI:
Physician Documentation Request
Admit Date: 09/12/23 16:09
Dear Cardiology,
Please review the following and provide your response in the progress notes.
Clinical Indicators: Patient admit for NSEMI and acute heart failure.
- 09/13 Potassium level 3.2
- 09/13 40 meq PO Potassium chloride given
- 09/14 Potassium level 3.8
Please provide a diagnosis for the above lab values that were monitored and treatment rendered:
Hypokalemia
Clinically insignificant abnormal lab value
Other
Use of terms such as suspected, likely, concern for, or probable (associated with a specific diagnosis that is being evaluated, monitored, or treated as if it exists) are acceptable and can be coded in the inpatient setting, when documented at the
time of discharge.
Thank you,
Nola Gutierrez RN
CDI Specialist
Please use your independent medical judgment in providing your response.
--- NOTE | 2023-09-14 12:47 | CM ---
CM following for DC planning needs.
DC plan is for home w/ hospice thru [facility].
Referral made to [facility], / referral accepted. Sent all requested info.
Spoke this AM w/ Liza, [facility], c: [phone]. Per Liza, DME to be delivered this AM between 10-11.
Arranged [facility] transportation [facility] for [facility] 2:15 PU.
emergency medical service manager to meet with patient/family upon return home.
Met w/ patient on numerous occasions and she is aware/agreeable to DC home today w/ hospice.
Plan: HOME today via [facility] w/ hospice thru [facility]
--- NOTE | 2023-09-14 13:00 | PTCARENOTE ---
Assisted into shower useing shower chair with supervision pt showered, and dressed in own pajamas post. INT x 2 removed, telemetry discontinued. Awaiting transport.
--- NOTE | 2023-09-14 14:32 | PTCARENOTE ---
Pt left with transport team, daughter riding along with them. All belongings transported with.
T
== END 2023-09-14 17:34 | disposition hospice, home (50) | DRG 280 ==
LOC: CVICU 16:09
PROVIDERS: Nurse Practitioner; Physician Assistant Medical; ADMITTING PHYSICIAN Internal Medicine Cardiovascular Disease; CONSULT PHYSICIAN Thoracic Surgery (Cardiothoracic Vascular Surgery); REFERRING PHYSICIAN Family Medicine
PROC: 4A033BC Measurement of Arterial Pressure, Coronary, Percutaneous Approach (ICD-10-PCS; 2023-09-12)
DX: I21.4 Non-ST elevation (NSTEMI) myocardial infarction (principal); I50.21 Acute systolic (congestive) heart failure; I13.0 Hypertensive heart and chronic kidney disease with heart failure and stage 1 through stage 4 chronic kidney disease, or unspecified chronic kidney disease; N18.32 Chronic kidney disease, stage 3b; E78.5 Hyperlipidemia, unspecified; E11.22 Type 2 diabetes mellitus with diabetic chronic kidney disease; C44.90 Unspecified malignant neoplasm of skin, unspecified; E87.6 Hypokalemia; Z66 Do not resuscitate; I48.0 Paroxysmal atrial fibrillation; Z87.891 Personal history of nicotine dependence; Z87.11 Personal history of peptic ulcer disease
CPT/HCPCS: 71250; 74176; 80048; 80061; 82962; 83036; 84484; 85027; 85347; 85610; 85730; 86850; 86900; 86901; 92920; 93005; 93306; 93571; 93880; C1760; C1769; C1887; C1894; Q9967